=== PATIENT | male | born 1945 | race Caucasian/White ===

== ENCOUNTER → 2018-07-26 11:58 | Outpatient (CLI) | payer MEDICARE ==
[2018-07-26 12:37] LABS: BASOPHILS 0.5 % (0-2); EOSINOPHILS 5.2 % (0-7); HEMATOCRIT 33.9 % (42.0-54.0); HEMOGLOBIN 11.3 g/dL (13.5-17.5); IMMATURE GRANULOCYTES 0.2 % (0-5); LYMPHOCYTES 29.2 % (15-50); MCHC 33.3 g/dL (31.0-37.0); MCV 93.1 fL (80.0-100.0); MEAN PLATELET VOLUME 9.2 fL (7.4-10.4); MONOCYTES 12.2 % (2-11); NEUTROPHILS 52.7 % (40-80); PLATELET COUNT 285 10x3/uL (130-400); RBC 3.64 10x6/uL (4.20-6.10); RDW 14.5 % (11.5-14.5); WBC 5.9 10x3/uL (4.8-10.8)
== END | disposition home or self-care (01) ==
LOC: D.LAB 11:58
PROVIDERS: ATTEND Internal Medicine Gastroenterology
DX: K92.0 Hematemesis (principal); R10.13 Epigastric pain